=== PATIENT | male | born 1965 | race Caucasian/White ===

== ENCOUNTER 2021-12-05 15:53 | Emergency (ER) | payer MEDICARE ==
--- OUTSIDE RECORDS SUMMARY | 2021-12-05 15:57 | XMS REPORT | Continuity of Care Document ---
:1965 Author Organization [facility] t Address [address] [place] [address] Care Team Providers Name Role Phone FANY ARAGON Attending Clinician Unavailable FANY ARAGON Attending Clinician Unavailable Delphine Juárez Attending Clinician Care, Stefan Primary Attending Clinician Unavailable Doctor Unassigned, Tobin Attending Clinician Unavailable Payers Payer Name Policy Type Policy Number Effective Date Expiration Date S neal [employer] MEDICARE ADV [id number] 2019 00:00:00 Problems Condition Condition Condition Status Onset Resolution Last Treating Co mments Source Name Details Category Date Date Treatment Clinician Date Cervical Cervical Disease Active Unive rs myofascial myofascial 5-09 it y of pain pain 00:00: [place] syndrome syndrome 00 Medica l Branch 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 Overview: Univ ers hernia hernia 1-21 Added ity of without without 00:00: automatic [place] obstructio obstructio 00 ally from Medical n or n or request Branch gangrene gangrene for surgery [id number] Generalize Generalize Disease Active 2016-03 U nivers d d 0-19 [place] abdominal abdominal [place] Allergies, Adverse Reactions, Alerts Allergy Allergy Status Severity Reaction(s) Onset Inactive Treating Comm ents Source Name Type Date Date Clinician Naproxen Propensi Active Rash 2016-03 Univer s Sodium ty to 0-19 ity of adverse 00:00: [place] reaction 00 Medical s Branch Penicill Propensi Active Rash 2016-03 Univer s ins ty to 0-19 ity of adverse 00:00: [place] reaction 00 Medical s Branch NAPROXEN DRUG Active Rash 2016-03 Univers SODIUM INGREDI 0-19 ity of 00:00: [place] 00 Medical Branch PENICILL Drug Active Rash 2016-03 Univers INS Class 0-19 ity of 00:00: [place] 00 Medical Branch Social History Social Habit Start Date Stop Date Quantity Comments Source History of Cigarette Smoker Universi ty of tobacco use [facility] Alcohol intake [facility] Sex Assigned At Universit y of [facility] Alcohol Comment 2017-03-10 2017-03-10 Former drinker - Uni versity of 00:00:00 00:00:00 quit Jan. 2013 [facility] Smoking Status Start Date Stop Date Source Current some day smoker 2018-10-28 00:00:00 [facility] Medications Ordered Filled Start Stop Current Ordering Indication Dosage Frequency Signature Comments Components Source Medication Medication Date Date Medication? Clinician (SIG) Name Name gabapentin Yes [id number] 300mg Take 1 Univers 300 mg 8-28 capsule by ity of capsule 00:00: mouth [place] ([facility]) Medical times Branch daily. gabapentin 2018- Yes [id number] 300mg Take 1 Univers 300 mg 8-28 capsule by ity of capsule 00:00: mouth [place] ([facility]) Medical times Branch daily. gabapentin 2018- Yes [id number] 300mg Take 1 Univers 300 mg 8-28 capsule by ity of capsule 00:00: mouth [place] ([facility]) Medical times Branch daily. gabapentin 2019- Yes [id number] 300mg Take 1 Univers 300 mg 8-28 capsule by ity of capsule 00:00: mouth [place] ([facility]) Medical times Branch daily. diazePAM 2018- Yes [id number] 5mg Take 1 Uni vers (VALIUM) 5 5-15 tablet by ity of mg tablet 00:00: mouth [place] ([facility]) Medical times Branch daily as needed for Muscle Spasms. diazePAM 2019-0 Yes [id number] 5mg Take 1 Uni vers (VALIUM) 5 5-15 tablet by ity of mg tablet 00:00: [place] ([facility]) Medical times Branch daily as needed for Muscle Spasms. diazePAM 2019-0 Yes [id number] 5mg Take 1 Uni vers (VALIUM) 5 5-15 tablet by ity of mg tablet 00:00: mouth [place] (three) Medical times Branch daily as needed for Muscle Spasms. diazePAM 2019-0 Yes [id number] 5mg Take 1 Uni vers (VALIUM) 5 5-15 tablet by ity of mg tablet 00:00: mouth [place] ([facility]) Medical times Branch daily as needed for Muscle Spasms. diazePAM 2019-0 Yes [id number] 5mg Take 1 Uni vers (VALIUM) 5 5-15 tablet by ity of mg tablet 00:00: mouth 3 (three) Medical times Branch daily as needed for Muscle Spasms. diazePAM 2019-0 Yes [id number] 5mg Take 1 Uni vers (VALIUM) 5 5-15 tablet by ity of mg tablet 00:00: mouth 3 (three) Medical times Branch daily as needed for Muscle Spasms. diazePAM 2018-0 Yes [id number] 5mg Take 1 Uni vers (VALIUM) 5 5-15 tablet by ity of mg tablet 00:00: mouth 3 (three) Medical times Branch daily as needed for Muscle Spasms. diazePAM 2018-0 Yes [id number] 5mg Take 1 Uni vers (VALIUM) 5 5-15 tablet by ity of mg tablet 00:00: mouth 3 (three) Medical times Branch daily as needed for Muscle Spasms. methocarbam 2018-0 Yes [id number] 500mg Take 1 Univers ol 500 mg 5-09 tablet by ity o f tablet 00:00: mouth (three) Medical times Branch daily with meals as needed for Other (muscle spasms). meloxicam 2018-0 Yes [id number] 7.5mg Take 1 Univers 7.5 mg 5-09 tablet by ity of tablet 00:00: mouth 2 (two) Medical times Branch daily. methocarbam 2019-0 Yes [id number] 500mg Take 1 Univers ol 500 mg 5-09 tablet by ity o f tablet 00:00: mouth 3 (three) Medical times Branch daily with meals as needed for Other (muscle spasms). meloxicam 2019-0 Yes [id number] 7.5mg Take 1 Univers 7.5 mg 5-09 tablet by ity of tablet 00:00: mouth 2 (two) Medical times Branch daily. methocarbam 2019-0 Yes [id number] 500mg Take 1 Univers ol 500 mg 5-09 tablet by ity o f tablet 00:00: mouth 3 (three) Medical times Branch daily with meals as needed for Other (muscle spasms). meloxicam 2019-0 Yes [id number] 7.5mg Take 1 Univers 7.5 mg 5-09 tablet by ity of tablet 00:00: mouth 2 (two) Medical times Branch daily. methocarbam 2019-0 Yes [id number] 500mg Take 1 Univers ol 500 mg 5-09 tablet by ity o f tablet 00:00: mouth 3 (three) Medical times Branch daily with meals as needed for Other (muscle spasms). meloxicam 2019-0 Yes [id number] 7.5mg Take 1 Univers 7.5 mg 5-09 tablet by ity of tablet 00:00: mouth 2 (two) Medical times Branch daily. methocarbam 2019-0 Yes [id number] 500mg Take 1 Univers ol 500 mg 5-09 tablet by ity o f tablet 00:00: mouth 3 (three) Medical times Branch daily with meals as needed for Other (muscle spasms). meloxicam 2019-0 Yes [id number] 7.5mg Take 1 Univers 7.5 mg 5-09 tablet by ity of tablet 00:00: mouth 2 (two) Medical times Branch daily. methocarbam 2019-0 Yes [id number] 500mg Take 1 Univers ol 500 mg 5-09 tablet by ity o f tablet 00:00: mouth 3 (three) Medical times Branch daily with meals as needed for Other (muscle spasms). meloxicam 2019-0 Yes [id number] 7.5mg Take 1 Univers 7.5 mg 5-09 tablet by ity of tablet 00:00: mouth (two) Medical times Branch daily. methocarbam 2019-0 Yes [id number] 500mg Take 1 Univers ol 500 mg 5-09 tablet by ity o f tablet 00:00: mouth 3 (three) Medical times Branch daily with meals as needed for Other (muscle spasms). meloxicam 2019-0 Yes [id number] 7.5mg Take 1 Univers 7.5 mg 5-09 tablet by ity of tablet 00:00: mouth 2 (two) Medical times Branch daily. methocarbam 2019-0 Yes [id number] 500mg Take 1 Univers ol 500 mg 5-09 tablet by ity o f tablet 00:00: mouth 3 (three) Medical times Branch daily with meals as needed for Other (muscle spasms). meloxicam 2019-0 Yes [id number] 7.5mg Take 1 Univers 7.5 mg 5-09 tablet by ity of tablet 00:00: mouth 2 [place] 00 (two) Medical times Branch daily. gabapentin 2019- Yes [id number] 300mg Take 1 Univers 300 mg 5-08 capsule by ity of capsule 00:00: mouth 3 [place] 00 (three) Medical times Branch daily. gabapentin 2018- Yes [id number] 300mg Take 1 Univers 300 mg 5-08 capsule by ity of capsule 00:00: mouth 3 [place] 00 (three) Medical times Branch daily. gabapentin 2018- Yes [id number] 300mg Take 1 Univers 300 mg 5-08 capsule by ity of capsule 00:00: mouth 3 [place] 00 (three) Medical times Branch daily. gabapentin 2018- Yes [id number] 300mg Take 1 Univers 300 mg 5-08 capsule by ity of capsule 00:00: mouth 3 [place] 00 (three) Medical times Branch daily. gabapentin 2019- No [id number] 300mg Take 1 Univers 300 mg 5-08 08-28 capsule by ity of capsule 00:00: 00:00 mouth 3 [place] 00 :00 (three) Medical times Branch daily. gabapentin 2019- No [id number] 300mg Take 1 Univers 300 mg 5-08 08-28 capsule by ity of capsule 00:00: 00:00 mouth 3 [place] 00 :00 (three) Medical times Branch daily. Vital Signs Vital Name Observation Time Observation Value Comments Source Systolic blood 2018-10-28 16:39:00 128 mm[Hg] [facility] Diastolic blood 2018-10-28 16:39:00 85 mm[Hg] [facility] Heart rate 2018-10-28 16:39:00 87 /min [facility] Body temperature 2018-10-28 16:39:00 36.78 [place] [facility] Respiratory rate 2018-10-28 16:39:00 20 /min [facility] Body height 2018-10-28 16:39:00 188 cm [facility] Body weight 2018-10-28 16:39:00 81.194 kg [facility] BMI 2018-10-28 16:39:00 22.98 kg/m2 [facility] Procedures Procedure Date / Time Performed Performing Clinician [facility] 2018-10-28 05:01:00 Doctor Unassigned, No [facility] RELEASE/CLEARANCE Name Medical Branch FORMS Encounters Start End Encounter Admission Attending Care Care Encounter Source Date/Time Date/Time Type Type Clinicians Facility Department ID 2019-05-31 2019-05-31 Outpatient FANY GUILLERMO [facility] [id number] Univers 15:40:00 15:40:00 [id number] 2019-05-31 Outpatient FANY GUILLERMO [facility] [id number] Univers 15:40:00 15:40:00 FANY ARAGON [facility] 2018-12-08 2018-12-08 Telephone Delphine Valenzuela [id number] Univers 00:00:00 00:00:00 [facility] [id number] it [id number] [id number] [address] 2018-11-26 2018-11-26 Telephone Nicolas Delphine ALMANZAR [id number] Univers 00:00:00 00:00:00 [facility] [id number] [id number] [id number] [address] 2018-11-24 2018-11-24 Telephone Nicolas Delphine ALMANZAR [id number] Univers 00:00:00 00:00:00 [facility] [id number] [id number] [id number] [address] 2018-10-28 2018-11-01 Office Care, Stefan ALMANZAR [id number] Univers 11:36:37 15:45:06 Visit Delphine Valenzuela [facility] [id number] [id number] [id number] [address] 2018-10-28 2018-10-28 Orders Doctor JONES [id number] Univers 00:00:00 00:00:00 Only Unassigned, YVAN [id number] ity of [place] [facility] [id number] [place] [id number] [facility] 009 Branch Results This patient has no known results.
[2021-12-05 17:02] LABS: Hematocrit 43.8 % (39.6-49.0); MPV 7.3 fL (7.6-11.3); RBC Red Blood Cell Count 4.98 M/uL (4.33-5.43)
[2021-12-05 17:03] LABS: Blood Morphology Comment NOT SEEN (NOT SEEN); Platelet Estimate ADEQ; White Blood Cell Scan OK (OK)
[2021-12-05 17:23] LABS: Albumin 3.8 g/dL (3.4-5.0); Bilirubin Total 0.3 mg/dL (0.2-1.0); Potassium 3.6 mmol/L (3.5-5.1); Protein, Total 7.6 g/dL (6.4-8.2)
--- NOTE | 2021-12-05 19:12 | RAD REPORT ---
EXAM DESCRIPTION: CT - Abdomen Pelvis W Contrast - 12/05/2021 5:40 pm CLINICAL HISTORY: right groin pain, hx of hernia repair COMPARISON: No comparisons TECHNIQUE: Biphasic, helical CT imaging of the abdomen and pelvis was performed following 100 ml non -ionic IV contrast. No oral contrast administered. All CT scans are performed using dose optimization technique as appropriate and may include automated exposure control or mA/KV adjustment according to patient size. FINDINGS: No suspicious findings in the lung bases. The liver, spleen, and pancreas show no suspicious findings. Gallbladder and biliary tree are also wi thout suspicious finding. Gallstones can be occult on CT imaging. Symmetric renal function is seen with no hydronephrosis or suspicious renal mass. No pyelonephritis o r acute parenchymal process. No adrenal abnormalities. Urinary bladder hudson appear slightly thickened. This may be due to contracted state. Cystitis is not suspected without supporting clinical and laboratory findings. This could be wall hypertrophy relate d to a prostatic urethral flow restriction. No dilated bowel loops or bowel wall thickening. No free air, free fluid or inflammatory stranding. No mass or bulky lymphadenopathy. Very small defects are seen in the ventral upper abdominal wall. N o congestion or edema. Bowel does not extend through any of the small defects. Patient has a fat fill ed right inguinal hernia with no congestion or edema. Fat extends minimally into the proximal left in guinal canal. By history the patient has had left inguinal surgery repair. There is no evidence for m atch for clips in this region. No suspicious bony findings. Disc and bone degenerative changes are present. 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 IMPRESSION: Fat extends into the origin of the left inguinal canal. No congestion or edema in this l ocation. Right inguinal hernia is larger than the left but without congestion or edema. Urinary bladder hudson appear thickened probably artifact of contraction. Wall thickening related to p rostatic urethral restriction is possible.
--- NOTE | 2021-12-05 19:45 | ER ---
Nurse's Notes [facility] Name: Jose Huang Age: 56 yrs Sex: Male : 1965 Arrival Date: 12/05/2021 Time: 15:57 Bed 19 Private MD: Diagnosis: Unilateral inguinal hernia, without obstruction or gangrene Presentation: 12/05 16:43 Chief complaint: Patient states: I think I messed my hernia up "it pushes out when I ld1 cough.". Coronavirus screen: At this time, the client does not indicate any symptoms associated with coronavirus-19. Ebola Screen: No symptoms or risks identified at this time. Initial Sepsis Screen: Does the patient meet any 2 criteria? No. Patient's initial sepsis screen is negative. Does the patient have a suspected source of infection? No. Patient's initial sepsis screen is negative. Risk Assessment: Do you want to hurt yourself or someone else? Patient reports no desire to harm self or others. Onset of symptoms was December 05, 2021. 16:43 Method Of Arrival: Ambulatory ld1 16:43 Acuity: NITISH 3 ld1 Triage Assessment: 16:41 General: Appears in no apparent distress. comfortable, Behavior is calm, cooperative, ld1 appropriate for age. Pain: Complains of pain in abdomen Pain does not radiate. Pain currently is 1 out of 10 on a pain scale. EENT: No signs and/or symptoms were reported regarding the EENT system. Neuro: Level of Consciousness is awake, alert, obeys commands, Oriented to person, place, time, situation. Cardiovascular: Capillary refill < 3 seconds Patient's skin is warm and dry. Respiratory: Airway is patent Respiratory effort is even, unlabored. GI: Abdomen is flat, non-distended. : No signs and/or symptoms were reported regarding the genitourinary system. Derm: No signs and/or symptoms reported regarding the dermatologic system. Musculoskeletal: No signs and/or symptoms reported regarding the musculoskeletal system. Historical: - Allergies: 16:41 No Known Allergies; ld1 - PMHx: 16:41 hernia; ld1 - PSHx: 16:41 None; ld1 - Immunization history:: Adult Immunizations up to date, Client reports receiving the 2nd dose of the Covid vaccine. - Social history:: Smoking status: Patient reports the use of cigarette tobacco products, smokes one-half pack cigarettes per day, Patient uses alcohol, admits to "couple of beers" a day. Assessment: 20:35 Reassessment: Patient is alert, oriented x 3, equal unlabored respirations, skin bb warm/dry/pink. pt seen by this RN at discharge pt verbalized understanding of and agrees to plan of care discharge instructions given pt ambulated with steady gait to exit. Vital Signs: 16:41 BP 169 / 94; Pulse 80; Resp 18; Temp 98.9(O); Pulse Ox 99% on R/A; Weight 83.46 kg; ld1 Height 6 ft. 2 in. (187.96 cm); Pain 0/10; 16:41 Body Mass Index 23.62 (83.46 kg, 187.96 cm) ld1 ED Course: 15:57 Patient arrived in ED. rg4 15:58 Efren Rodarte PA is PHCP. [facility] 15:58 Felton Diallo DO is Attending Physician. [facility] 16:41 Arm band placed on right wrist. ld1 16:44 Triage completed. ld1 17:00 Inserted saline lock: 20 gauge in left antecubital area, using aseptic technique. Blood iw collected. IV started by NGA Patel tech. 17:42 CT Abd/Pelvis - IV Contrast Only In Process Unspecified. EDMS 18:11 Lyla Lao, ANUM is Primary Nurse. jg9 19:44 Yvon Monaco MD is Referral Physician. [facility] 20:36 No provider procedures requiring assistance completed. IV discontinued, intact, bb bleeding controlled, No redness/swelling at site. Pressure dressing applied. Administered Medications: No medications were administered Outcome: 19:45 Discharge ordered by . [facility] 20:37 Discharged to home ambulatory. bb 20:37 Condition: stable 20:37 Discharge instructions given to patient, Instructed on discharge instructions, follow up and referral plans. medication usage, Demonstrated understanding of instructions, follow-up care, medications, Prescriptions given X 1. 20:38 Patient left the ED. bb Signatures: Dispatcher [employer] EDMS Efren Rodarte PA PA jmm Ballard, Brenda, RN RN bb Williams, Irene, RN RN iw Garcia, Rubi rg4 Stella Mackey RN RN [facility] Lyla Lao, RN RN jg9
--- NOTE | 2021-12-05 19:45 | EDPHYS ---
Physician Documentation [facility] Name: Jose Huang Age: 56 yrs Sex: Male : 1965 Arrival Date: 12/05/2021 Time: 15:57 Bed 19 Private MD: ED Physician Felton Diallo HPI: 12/05 16:14 This 56 yrs old Male presents to ER via Ambulatory with complaints of Hernia. jmm 16:14 The patient presents with swelling. Onset: The symptoms/episode began/occurred acutely, jmm 1 day(s) ago. Modifying factors: The symptoms are alleviated by nothing, the symptoms are aggravated by movement. This is a 56-year-old male with a history of inguinal hernia the presents emerged part with complaints of swelling to the right groin which occurred after the patient was performing strenuous activity while cleaning out a house. Patient denies other injury. Denies vomiting. Denies fever.. Historical: - Allergies: 16:41 No Known Allergies; ld1 - PMHx: 16:41 hernia; ld1 - PSHx: 16:41 None; ld1 - Immunization history:: Adult Immunizations up to date, Client reports receiving the 2nd dose of the Covid vaccine. - Social history:: Smoking status: Patient reports the use of cigarette tobacco products, smokes one-half pack cigarettes per day, Patient uses alcohol, admits to "couple of beers" a day. ROS: 16:14 Constitutional: Negative for fever, chills, and weight loss, Cardiovascular: Negative jmm for chest pain, palpitations, and edema, Respiratory: Negative for shortness of breath, cough, wheezing, and pleuritic chest pain. 16:14 : Positive for pelvic pain. 16:14 All other systems are negative. Exam: 16:14 Constitutional: This is a well developed, well nourished patient who is awake, alert, jmm and in no acute distress. Head/Face: atraumatic. Eyes: EOMI, no conjunctival erythema appreciated ENT: Moist Mucus Membranes Neck: Trachea midline, Supple Chest/axilla: Normal chest wall appearance and motion. Cardiovascular: Regular rate and rhythm. No edema appreciated Respiratory: Normal respirations, no respiratory distress appreciated 16:14 Skin: General appearance color normal MS/ Extremity: Moves all extremities, no obvious deformities appreciated, no edema noted to the lower extremities Neuro: Awake and alert Psych: Behavior is normal, Mood is normal, Patient is cooperative and pleasant 16:14 Abdomen/GI: Inspection: abdomen appears normal, Bowel sounds: normal, Palpation: soft, moderate abdominal tenderness, in the suprapubic area and right lower quadrant. Vital Signs: 16:41 BP 169 / 94; Pulse 80; Resp 18; Temp 98.9(O); Pulse Ox 99% on R/A; Weight 83.46 kg; ld1 Height 6 ft. 2 in. (187.96 cm); Pain 0/10; 16:41 Body Mass Index 23.62 (83.46 kg, 187.96 cm) ld1 MDM: 16:14 Patient medically screened. [facility] 19:43 Data reviewed: vital signs, nurses notes. Counseling: I had a detailed discussion with [facility] the patient and/or guardian regarding: the historical points, exam findings, and any diagnostic results supporting the discharge/admit diagnosis, lab results, radiology results, the need for outpatient follow up, to return to the emergency department if symptoms worsen or persist or if there are any questions or concerns that arise at home. ED course: Patient is alert nontoxic in appearance in the ED. CT did reveal a large right inguinal hernia. Patient advised to follow-up with general surgery and otherwise given strict return precautions. Patient understood and agrees plan of care.. 12/05 16:14 Order name: CBC with Diff; Complete Time: 17:04 [facility] 12/05 16:14 Order name: CMP; Complete Time: 17:25 [facility] 12/05 16:14 Order name: Lipase; Complete Time: 17:25 [facility] 12/05 16:14 Order name: CT Abd/Pelvis - IV Contrast Only; Complete Time: 19:21 [facility] 12/05 16:14 Order name: IV Saline Lock; Complete Time: 17:43 [facility] 12/05 17:03 Order name: CBC Smear Scan; Complete Time: 17:04 [facility] 12/05 16:14 Order name: Labs collected and sent; Complete Time: 17:43 [facility] Administered Medications: No medications were administered Disposition Summary: 12/05/21 19:45 Discharge Ordered Location: Home [facility] Condition: Stable [facility] Diagnosis - Unilateral inguinal hernia, without obstruction or gangrene [facility] Followup: [facility] - With: Yvon Monaco MD - When: 2 - 3 days - Reason: Recheck today's complaints, Continuance of care, Re-evaluation by your physician Discharge Instructions: - Discharge Summary Sheet [facility] - Inguinal Hernia, Adult [facility] Forms: - Medication Reconciliation Form [facility] - Thank You Letter vishal - Antibiotic Education vishal - Prescription Opioid Use vishal Prescriptions: - Diclofenac Sodium 75 mg Oral Tablet Sustained Release - take 1 tablet by ORAL route 2 times per day; 30 tablet; Refills: 0, Product deanna Selection Permitted Addendum: 12/08/2021 23:29 Co-signature as Attending Physician, Felton Diallo DO I agree with the assessment and m s3 plan of care. Signatures: Dispatcher [employer] EDMS Efren Rodarte PA PA jmm Sims, Marcus, DO DO ms3 Stella Mackey, RN RN ld1
[2021-12-05 22:51] VITALS: BP 169/94; TEMP 98.9; O2SAT 99
== END 2021-12-05 20:38 | disposition home or self-care (01) ==
LOC: ER 15:53
DX: K40.90 Unilateral inguinal hernia, without obstruction or gangrene, not specified as recurrent (principal); F17.210 Nicotine dependence, cigarettes, uncomplicated
CPT/HCPCS: 85025; 36415; 83690; 80053; 74177; 99284; Q9967